=== PATIENT | female | born 1980 ===

== ENCOUNTER 2016-12-25 11:00 | Outpatient (RCR) | payer BC | END 2017-01-05 | disposition home or self-care (01) | LOC: WCC 11:00 | DX: T86.820 Skin graft (allograft) rejection (principal); C50.012 Malignant neoplasm of nipple and areola, left female breast; Z87.891 Personal history of nicotine dependence; Z90.13 Acquired absence of bilateral breasts and nipples | CPT/HCPCS: G0277; G0463; 99204 ==

== ENCOUNTER 2017-01-06 13:00 | Outpatient (RCR) | payer BC | END 2017-02-05 | disposition home or self-care (01) | LOC: WCC 13:00 | DX: C50.012 Malignant neoplasm of nipple and areola, left female breast (principal); T86.820 Skin graft (allograft) rejection; Z90.13 Acquired absence of bilateral breasts and nipples | CPT/HCPCS: G0277 ×13 ==